=== PATIENT | male | born 1945 | race Caucasian/White ===

== ENCOUNTER 2020-07-07 07:25 | Day surgery (SDC) | payer MEDICARE, BC ==
[~2020-07-07] VITALS: Ht 172.7 cm; Wt 92.4 kg
[2020-07-07] VITALS (13 sets, daily range): BP systolic 114–163; BP diastolic 53–98
[2020-07-07] MEDS ORDERED: MESSAGE TO PHARMACY PO ONE (07:55)
[2020-07-07] MEDS ORDERED: diphenhydrAMINE 25mg capsule PO PRN (07:55)
[2020-07-07] MEDS ORDERED: insulin Lispro (HumaLOG) vial - multi-dose SQ SCH (07:55)
[2020-07-07] MEDS ORDERED: nitroGLYCERIN 0.4mg SUBLingual tab SL PRN (07:55)
[2020-07-07] MEDS ORDERED: glucagon, human recombinant 1mg kit SUBCUT PRN (07:55)
[2020-07-07] MEDS ORDERED: normal saline 1,000 ML IV SCH (07:55)
[2020-07-07] MEDS ORDERED: LORazepam 0.5 MG tablet PO PRN (07:55)
[2020-07-07] MEDS ORDERED: dextrose ORAL solution 15 GM/59 ML bottle PO PRN ×2 (07:55)
[2020-07-07] MEDS ORDERED: dextrose 50%-water 50ml dispensing syringe IV PRN ×2 (07:55)
[2020-07-07] MEDS ORDERED: FINA5TAB11 PO (08:07)
[2020-07-07] MEDS ORDERED: FLO0.4C PO (08:07)
[2020-07-07] MEDS ORDERED: ATOR20TA66 PO (08:07)
[2020-07-07] MEDS ORDERED: LIRA0.6P2 (08:07)
[2020-07-07] MEDS ORDERED: POTA8TAB3 PO (08:07)
[2020-07-07] MEDS ORDERED: DILT300C53 PO (08:07)
[2020-07-07] MEDS ORDERED: CLOP75TA35 PO (08:07)
[2020-07-07] MEDS ORDERED: HUM7525 (08:07)
[2020-07-07] MEDS ORDERED: METF-438 PO (08:07)
[2020-07-07] MEDS ORDERED: FURO20TA4 PO (08:07)
[2020-07-07] MEDS ORDERED: RAMI2.5C26 PO (08:10)
[2020-07-07] MEDS ORDERED: ASPI-1265 PO (08:10)
[2020-07-07] MEDS ORDERED: SPIR25TA PO (08:10)
[2020-07-07] MEDS ORDERED: SITA100T15 PO (08:10)
[2020-07-07] MEDS ORDERED: MECL-159 PO (08:10)
[2020-07-07] MEDS ORDERED: midazolam 2 mg/2 ml injection ONE (08:53)
[2020-07-07] MEDS ORDERED: fentaNYL/PF 50MCG/1 ML 2ML syringe ONE (08:54)
[2020-07-07] MEDS ORDERED: iohexol 350MG/ML 100ml bottle IV ONE (08:54)
[2020-07-07] MEDS ORDERED: heparin 1,000 UNITS/NS 500ml 500 ML ONE (08:54)
[2020-07-07] MEDS ORDERED: iohexol 350 MG/ML 50ML vial IV ONE ×3 (08:54→10:10)
[2020-07-07] MEDS ORDERED: LIDOcaine 1% (10mg/ml)w/preservative injection 20ml MDV ONE (08:54)
[2020-07-07] MEDS ORDERED: hydrALAZINE 20mg/ml inj. IV ONE (09:46)
[2020-07-07] MEDS ORDERED: HYDROcodone/acetaminophen 5mg/325mg tablet PO PRN (11:30)
[2020-07-07] MEDS ORDERED: ondansetron/PF 4mg/2ml inj IV PRN (11:30)
[2020-07-07] MEDS ORDERED: acetaminophen 325mg tablet PO PRN (11:30)
[2020-07-07] MEDS ORDERED: HYDROcodone/acetaminophen 10/325mg tab PO PRN (11:30)
[2020-07-07] MEDS ORDERED: OXAZEpam 15mg capsule PO PRN (11:30)
[2020-07-07] MEDS ORDERED: proCHLORperazine 10 MG/2 ml inj IV PRN (11:30)
[2020-07-07] MEDS ORDERED: insulin glargine (Lantus) pen - multi-dose SQ SCH (21:00)
== END 2020-07-07 16:00 | disposition home or self-care (01) ==
LOC: SSTAY O 07:25
PROVIDERS: ATTEND Internal Medicine Cardiovascular Disease
DX: R94.39 Abnormal result of other cardiovascular function study (principal); R06.09 Other forms of dyspnea; T82.855A Stenosis of coronary artery stent, initial encounter; T82.857A Stenosis of other cardiac prosthetic devices, implants and grafts, initial encounter; I25.119 Atherosclerotic heart disease of native coronary artery with unspecified angina pectoris; I35.1 Nonrheumatic aortic (valve) insufficiency; I25.82 Chronic total occlusion of coronary artery; I10 Essential (primary) hypertension; E78.5 Hyperlipidemia, unspecified; E11.9 Type 2 diabetes mellitus without complications; J44.9 Chronic obstructive pulmonary disease, unspecified; E66.9 Obesity, unspecified; Z68.30 Body mass index [BMI] 30.0-30.9, adult; I25.2 Old myocardial infarction; Z87.891 Personal history of nicotine dependence; Z98.890 Other specified postprocedural states; Z79.899 Other long term (current) drug therapy; Y83.8 Other surgical procedures as the cause of abnormal reaction of the patient, or of later complication, without mention of misadventure at the time of the procedure; Y92.89 Other specified places as the place of occurrence of the external cause
CPT/HCPCS: 36415; 82948; 83880; 93005; 93459; 93567; 99152; 99153; C1760; C1769; J0360; J1644; J1815; J2001; J2250; J3010; J7030; Q0163; Q9967; A4620; A6258